=== PATIENT | female | born 1935 | race African-American/Black ===

== ENCOUNTER 2019-06-06 09:29 | Emergency (ER) | payer MEDICARE, OTHER ==
[~2019-06-06] VITALS: Ht 152.4 cm; Wt 45.4 kg
[2019-06-06] MEDS ORDERED: SODIUM CHLORIDE 0.9% 500 ML IVB ONE (09:38)
[2019-06-06 10:28] LABS: Basophils # (auto) 0.1 uL; Basophils % (auto) 0.7 % (0.0-2.0); Eosinophils # (auto) 0 uL; Eosinophils % (auto) 0.1 % (0.0-7.0); Hematocrit 42.3 % (36.0-46.0); Lymphocytes # (auto) 0.9 uL; Lymphocytes % (auto) 9.7 % (10.0-50.0); Mean Corpuscular Hemoglobin 29.5 pg (28.0-32.0); Mean Corpuscular Hgb Conc. 33.1 g/dL (32.0-36.0); Mean Corpuscular Volume 89.1 fL (80.0-100.0); Monocytes # (auto) 0.6 uL; Monocytes % (auto) 6.5 % (0.0-12.0); Neutrophils # (auto) 7.7 uL; Platelet Count (auto) 364 10^3/uL (140-450); Red Blood Cells 4.75 10^6/uL (4.0-5.20); Red Cell Distribution Width 17.1 % (11.8-14.3); White Blood Cell 9.2 10^3/uL (4.4-10.8)
[2019-06-06] MEDS ORDERED: ASPirin 81 mg TAB PO ONE (10:30)
[2019-06-06 10:50] LABS: Albumin 2.5 g/dL (3.4-5.0); Anion Gap 10 (5-15); Blood Alcohol < 3.0 mg/dL (0-5); Blood Urea Nitrogen 18 mg/dL (7-18); Calcium 9.2 mg/dL (8.5-10.1); Carbon Dioxide 25 mmol/L (21-32); Chloride 104 mmol/L (98-107); Glucose 80 mg/dL (74-106); Magnesium 2.3 mg/dL (1.6-2.6); Potassium 3.9 mmol/L (3.5-5.1); Sodium 139 mmol/L (136-145)
[2019-06-06 10:55] LABS: Alanine Aminotransferase 21 U/L (13-56); Alkaline Phosphatase 97 U/L (45-117); Aspartate Aminotransferase 57 U/L (15-37); Bilirubin, Total 1.3 mg/dL (0.2-1.0); GFR African American 55 mL/min; GFR Non-African American 45 mL/min; Total Protein 7.3 g/dL (6.4-8.2)
[2019-06-06 11:15] LABS: Urine Bacteria NONE SEEN /hpf (None Seen); Urine Blood Negative /uL (Negative); Urine Hyaline Cast MOD /lpf (0 - 2); Urine Mucus FEW (None Seen); Urine WBC 1 /hpf (0 - 5)
[2019-06-06] MEDS ORDERED: AMIODARONE HCL 900 MG in DEXTROSE 500 ML IV SCH ×2 (11:28→17:28)
[2019-06-06] MEDS ORDERED: AMIODARONE HCL 150 MG in D5W 5% 100 ML IV ONE (11:30)
[2019-06-06] MEDS ORDERED: MORPHINE SULF INJ 2 MG/ML SYRINGE 1ML IV PRN ×2 (11:30)
[2019-06-06] MEDS ORDERED: ACETAMINOPHEN 500 MG TAB PO PRN (11:30)
[2019-06-06] MEDS ORDERED: ALBUTEROL SULF 2.5 MG/0.5ML(0.5%) NEB SOLN NEB PRN (11:30)
[2019-06-06] MEDS ORDERED: ONDANSETRON HCL 4 MG/2 ML VIAL IV PRN (11:30)
[2019-06-06] MEDS ORDERED: IPRATROPIUM BROM 0.5 MG/2.5ML INH SOL NEB PRN (11:30)
[2019-06-06] MEDS ORDERED: NITROGLYCERIN 0.4 MG SL TAB SL PRN (11:30)
[2019-06-06] MEDS ORDERED: FAMOTIDINE (10MG/ML) 2ML VL IV SCH (11:32)
[2019-06-06 12:18] LABS: Cholesterol 129 mg/dL (< 200); Triglycerides 94 mg/dL (< 150)
[2019-06-06] MEDS: D5W/SOD CHLO 0.9% 1,000 ML IV SCH ×2 (12:19→14:40)
[2019-06-06 12:20] LABS: HDL Cholesterol 50 mg/dL (40-59); LDL Cholesterol 68 mg/dL (< 100)
[2019-06-06 12:22] VITALS: BP 108/59
[2019-06-06] MEDS ORDERED: ETOMIDATE (2MG/ML) 20ML VIAL IV ONE ×2 (13:25→13:30)
[2019-06-06] MEDS ORDERED: SUCCINYLCHOLINE CHLORIDE 20 MG/ML 10ML VIAL IV ONE ×2 (13:25→13:30)
[2019-06-06] MEDS ORDERED: MIDAZOLAM DRIP 50 mg/50mL 50 ML IV ONE (13:39)
[2019-06-06] MEDS ORDERED: MIDAZOLAM DRIP 50 mg/50mL 50 ML IV SCH (13:44)
[2019-06-06] MEDS ORDERED: NOREPINEPHRINE 8 MG/250ML KIT 250 ML IV ONE (14:28)
[2019-06-06] MEDS ORDERED: NOREPINEPHRINE 8 MG/250ML KIT 250 ML IV SCH (14:30)
[2019-06-06 16:48] VITALS: BP 101/56
[2019-06-06] MEDS ORDERED: APIXABAN 2.5 MG TAB PO SCH (22:00)
== END 2019-06-06 17:32 | disposition short-term general hospital (02) ==
LOC: EDBD 09:29 → ER 09:38 → EDBD 09:38 → UNDOADMIN 09:39 → TELE 09:39 → ER 17:32
DX: I63.9 Cerebral infarction, unspecified (principal); R41.82 Altered mental status, unspecified; I48.91 Unspecified atrial fibrillation; I10 Essential (primary) hypertension
CPT/HCPCS: 31500; 36415; 36556; 36600; 70450; 71045; 74018; 80053; 80061; 80320; 81001; 82805; 83605; 83735; 84443; 84484; 85025; 87040; 93005; 93886; 96365; 96366; 96375; 99291; J0282; J0330; J2250; J3490; J7060; 94002